=== PATIENT | male | born 1990 | race Caucasian/White ===

== ENCOUNTER 2017-02-18 11:36 | Emergency (ER) | payer OTHER ==
[~2017-02-18 11:36] MED LIST: CIPR500T94 PO; HYDR-2758 PO; PHEN-444 PO; TAMS0.4C97 PO
--- NOTE | 2017-02-18 12:29 | PHYS DOC ---
Past Medical History Past Medical History: No Pertinent History, Kidney Stone Additional Past Surgical Histo: RENAL STENT 2016 Alcohol Use: Occasionally Drug Use: None Adult General Chief Complaint Chief Complaint: FLANK PAIN HPI HPI Patient is a 26 year old male who presents with flank pain. Patient states the pain came on abruptly, was severe in nature, caused him to throw up. He's had similar pain in the past when he had a kidney stone. The pain has since subsided. He did urinate once since the pain started that the pain was persistent after urinating. In the past the patient required a ureteral stent and they plan to have lithotripsy performed. But when they went to perform the procedure they couldn't find a stone. He does not actively follow with primary care physician or a urologist. Review of Systems Review of Systems Constitutional: Denies fever or chills [] Eyes: Denies change in visual acuity, redness, or eye pain [] HENT: Denies nasal congestion or sore throat [] Respiratory: Denies cough or shortness of breath [] Cardiovascular: No additional information not addressed in HPI [] GI: Denies abdominal pain, nausea, vomiting, bloody stools or diarrhea [] : Denies hematuria [] Musculoskeletal: Denies joint pain [] Integument: Denies rash or skin lesions [] Neurologic: Denies headache, focal weakness or sensory changes [] Current Medications Current Medications Current Medications Medications (Trade) Dose Ordered Sig/Carrie Start Time Stop Time Status Last Admin Dose Admin Sodium Chloride 1,000 ml @ 1,000 mls/hr 1X ONCE 02/18/17 12:30 02/18/17 13:29 DC 02/18/17 12:38 1,000 MLS/HR Allergies Allergies Allergies Coded Allergies Type Severity Reaction Last Updated Verified No Known Drug Allergies 11/12/14 No Physical Exam Physical Exam Constitutional: Well developed, well nourished, no acute distress, non-toxic appearance. Appears very comfortable at this time HENT: Normocephalic, atraumatic, bilateral external ears normal, oropharynx moist, no oral exudates, nose normal. [] Eyes: PERRLA, EOMI, conjunctiva normal, no discharge. [] Neck: Normal range of motion, no tenderness, supple, no stridor. [] Cardiovascular:Heart rate regular rhythm, no murmur [] Lungs & Thorax: Bilateral breath sounds clear to auscultation [] Abdomen: Bowel sounds normal, soft, no tenderness, no masses, no pulsatile masses. [] Skin: Warm, dry, no erythema, no rash. [] Back: No tenderness, no CVA tenderness. No tenderness to percussion Extremities: No tenderness, no cyanosis, no clubbing, ROM intact, no edema. [] Neurologic: Alert and oriented X 3, normal motor function, normal sensory function, no focal deficits noted. [] Psychologic: Affect normal, judgement normal, mood normal. [] Current Patient Data Vital Signs Vital Signs Date Time Temp Pulse Resp B/P (MAP) Pulse Ox O2 Delivery O2 Flow Rate FiO2 02/18/17 13:00 79 141/79 (99) 100 Room Air 02/18/17 12:02 97.9 18 97.9 Lab Values Laboratory Tests Test 02/18/17 12:45 Urine Collection Type Unknown Urine Color Yellow Urine Clarity Clear Urine pH 6.0 Urine Specific Hubbard 1.025 Urine Protein Negative mg/dL (NEG-TRACE) Urine Glucose (UA) Negative mg/dL (NEG) Urine Ketones (Stick) Negative mg/dL (NEG) Urine Blood Large (NEG) Urine Nitrite Negative (NEG) Urine Bilirubin Negative (NEG) Urine Urobilinogen Dipstick 0.2 mg/dL (0.2 mg/dL) Urine Leukocyte Esterase Small (NEG) Urine RBC 11-20 /HPF (0-2) Urine WBC 1-4 /HPF (0-4) Urine Squamous Epithelial Cells Mod /LPF Urine Bacteria 0 /HPF (0-FEW) Urine Mucus Mod /LPF EKG EKG [] Radiology/Procedures Radiology/Procedures [] Course & Med Decision Making Course & Med Decision Making Pertinent Labs and Imaging studies reviewed. (See chart for details) Pt received IV fluids. He appears very comfortable at this time, likely the stone has passed or moved on. Remained remained well controlled. Urine did not show significant infection. I explained home treatment if symptoms return, patient voice understanding. He was discharged with [facility], instructed not to take unless he was having the severe pain he had earlier today. Referred to [facility] urology clinic. Urologist Mansi Disclaimer Mansi Disclaimer This electronic medical record was generated, in whole or in part, using a voice recognition dictation system. Departure Departure Impression: Primary Impression: Flank pain Disposition: HOME, SELF-CARE Condition: IMPROVED Referrals: NO PCP (PCP) NICOLAS HERRERA MD Feb 18, 2017 12:29
[2017-02-18] MEDS ORDERED: IV NORMAL SALINE 1000ML BAG 1,000 ML IV ONE (12:30)
[2017-02-18 13:01] LABS: BILIRUBIN,URINE NEGATIVE (NEG); GLUCOSE,URINE NEGATIVE (NEG); NITRITE,URINE NEGATIVE (NEG); PROTEIN,URINE NEGATIVE (NEG-TRACE); UROBILINOGEN,URINE 0.2 mg/dL (0.2 mg/dL)
[2017-02-18 13:21] LABS: BACTERIA,URINE 0 /HPF (0-FEW); SQUAMOUS EPITHELIAL CELL,UR MOD /LPF
[2017-02-18 14:10] VITALS: BP 138/88
[2017-02-18] MEDS ORDERED: ONDA4TAB10 SL (14:16)
[2017-02-18] MEDS ORDERED: HYDR-971 PO (14:16)
[2017-02-18] MEDS ORDERED: TAMS0.4C97 PO (14:16)
== END 2017-02-18 14:36 | disposition home or self-care (01) ==
LOC: ER 11:36
DX: R10.9 Unspecified abdominal pain (principal); Z87.442 Personal history of urinary calculi; Z96.0 Presence of urogenital implants
CPT/HCPCS: 81001; 87086; 96360; 99284; J7030

== ENCOUNTER 2017-03-18 11:59 | Emergency (ER) | payer OTHER ==
[2017-03-18] MEDS: IV NORMAL SALINE 1000ML BAG 1,000 ML IV (12:29)
[2017-03-18] MEDS: KETOROLAC 30 MG/ML INJ. IV (12:30)
[2017-03-18] MEDS: ONDANSETRON PF 4 MG/2 ML VIAL. IV (12:30)
[2017-03-18 12:41] LABS: BILIRUBIN,URINE NEGATIVE (NEG); GLUCOSE,URINE NEGATIVE (NEG); NITRITE,URINE NEGATIVE (NEG); PH,URINE 6.5; PROTEIN,URINE 30 mg/dL (NEG-TRACE); UROBILINOGEN,URINE 0.2 mg/dL (0.2 mg/dL)
[2017-03-18 13:00] LABS: BACTERIA,URINE 0 /HPF (0-FEW); RBC,URINE 20-40 /HPF (0-2); WBC,URINE 0 /HPF (0-4)
[2017-03-18 13:01] LABS: SQUAMOUS EPITHELIAL CELL,UR OCC /LPF
== END 2017-03-18 13:24 | disposition home or self-care (01) ==
LOC: ER 11:59
DX: N20.0 Calculus of kidney (principal)
CPT/HCPCS: 81001; 96361; 96374; 96375; 99284-25; J1885; J2405; J7030

== ENCOUNTER 2017-04-06 21:44 | Emergency (ER) | payer OTHER ==
[2017-04-06 22:10] LABS: ADD MAN DIFF? NO
[2017-04-06 22:13] LABS: BASO # 0.1 x10^3/uL (0.0-0.2); BASO % 1 % (0-3); EOS # 0.4 x10^3/uL (0.0-0.7); EOS % 4 % (0-3); HEMATOCRIT 44.5 % (39.0-53.0); HEMOGLOBIN 15.4 g/dL (13.0-17.5); LYMPH # 3.5 x10^3/uL (1.0-4.8); LYMPH % 33 % (24-48); MEAN CORPUSCULAR HEMOGLOBIN 30 pg (25-35); MEAN CORPUSCULAR HGB CONC 35 g/dL (31-37); MEAN CORPUSCULAR VOLUME 86 fL (79-100); MONO # 0.7 x10^3/uL (0.0-1.1); MONO % 6 % (0-9); NEUT # 5.9 x10^3uL (1.8-7.7); NEUT % 56 % (31-73); PLATELET COUNT 332 x10^3/uL (140-400); RED BLOOD COUNT 5.18 x10^6/uL (4.30-5.70); RED CELL DISTRIBUTION WIDTH 12.5 % (11.5-14.5); WHITE BLOOD COUNT 10.5 x10^3/uL (4.0-11.0)
[2017-04-06] MEDS: KETOROLAC 30 MG/ML INJ. IV (22:13)
[2017-04-06] MEDS: IV NORMAL SALINE 1000ML BAG 1,000 ML IV (22:13)
[2017-04-06 22:21] LABS: BILIRUBIN,URINE NEGATIVE (NEG); CLARITY,URINE CLEAR; COLOR,URINE YELLOW; GLUCOSE,URINE NEGATIVE (NEG); NITRITE,URINE NEGATIVE (NEG); PROTEIN,URINE NEGATIVE (NEG-TRACE)
[2017-04-06 22:22] LABS: ANION GAP 10 (6-14); BLOOD UREA NITROGEN 17 mg/dL (8-26); CALCIUM 8.6 mg/dL (8.5-10.1); CARBON DIOXIDE 28 mmol/L (21-32); CHLORIDE 100 mmol/L (98-107); CREATININE 1.3 mg/dL (0.7-1.3); GFR 66.2; GLUCOSE 95 mg/dL (70-99); SODIUM 138 mmol/L (136-145)
[2017-04-06 22:32] LABS: RBC,URINE >40 /HPF (0-2); SQUAMOUS EPITHELIAL CELL,UR FEW /LPF; WBC,URINE OCC /HPF (0-4)
[2017-04-06] MEDS ORDERED: HYDROmorphone 2 MG/ML VIAL (22:36)
[2017-04-06] MEDS: HYDROmorphone 2 MG/ML VIAL IV (22:40)
[2017-04-06] MEDS ORDERED: ONDANSETRON PF 4 MG/2 ML VIAL. (23:19)
[2017-04-06] MEDS: ONDANSETRON PF 4 MG/2 ML VIAL. IV (23:20)
[2017-04-07] MEDS ORDERED: HYDROcodone/APAP 5/325MG 1 TAB TABLET (00:51)
[2017-04-07] MEDS: HYDROcodone/APAP 5/325MG 1 TAB TABLET PO (00:53)
[2017-04-07] MEDS ORDERED: HYDROcodone/APAP 5/325MG 1 TAB TABLET PO (01:00)
== END 2017-04-07 00:55 | disposition home or self-care (01) ==
LOC: ER 04-07 00:55
DX: R31.29 Other microscopic hematuria (principal); N20.1 Calculus of ureter; N23 Unspecified renal colic; Z87.442 Personal history of urinary calculi
CPT/HCPCS: 36415; 74176; 80048; 81001; 85025; 96361; 96374; 96375; 99285-25; J1170; J1885; J2405; J7030